=== PATIENT | male | born 1965 | race Caucasian/White ===

== ENCOUNTER → 2016-07-10 | Outpatient (CLI) | payer OTHER ==
[2016-07-10 10:28] LABS: ALT 44 U/L (21-72); AST 27 U/L (17-59); Alkaline Phosphatase 85 U/L (38-126); Anion Gap 15 mmol/L; Blood Urea Nitrogen 12 mg/dL (9-20); Calcium 9.8 mg/dL (8.4-10.2); Carbon Dioxide 26 mmol/L (22-30); Chloride 101 mmol/L (98-107); Cholesterol 143 mg/dL (<200); Glucose 136 mg/dL (74-99); HDL Cholesterol 67 mg/dL (40-60); Non-African American GFR(MDRD) >60 (>60 ml/min/1.73 sqM); Potassium 4.4 mmol/L (3.5-5.1); Sodium 142 mmol/L (137-145); Total Bilirubin 1.1 mg/dL (0.2-1.3); Total Protein 7.5 g/dL (6.3-8.2); Triglycerides 75 mg/dL (<150)
== END | disposition home or self-care (01) ==
LOC: LABWHC1 09:05
PROVIDERS: ATTEND Internal Medicine Endocrinology, Diabetes & Metabolism
DX: E11.65 Type 2 diabetes mellitus with hyperglycemia (principal)
CPT/HCPCS: 36415; 80053; 80061; 82043

== ENCOUNTER 2019-01-07 06:56 | Day surgery (SDC) | payer OTHER ==
[2019-01-02 15:15] VITALS: BMI 28.0
[~2019-01-07 06:56] MED LIST: LACTATED RINGERS 1,000 ML IV SCH
[2019-01-07 07:13] VITALS: RESP 16; TEMP 98.5
[2019-01-07 07:21] LABS: Glucose,Whole Blood 157 mg/dL (75-99)
[2019-01-07] MEDS ORDERED: PROPOFOL 10 MG/ML 20 ML VIAL IV ONE (07:30)
[2019-01-07 08:13] VITALS: BP 124/79; PULSE 66
--- NOTE | 2019-01-07 08:18 | P.PCN ---
Date of Procedure: 01/07/19 Procedure(s) Performed: BRIEF HISTORY: Patient is a 53-year-old pleasant, white male scheduled for an elective colonoscopy as a part of screening for colorectal neoplasia. PROCEDURE PERFORMED: Colonoscopy with snare polypectomy. PREOPERATIVE DIAGNOSIS: Screening for colon cancer. IV sedation per Anesthesia. PROCEDURE: After informed consent was obtained, the patient, was brought into the endoscopy unit. IV sedation was administered by Anesthesia under continuous monitoring. Digital rectal examination was normal. Initially the Olympus CF-160 flexible video colonoscope was then inserted in the rectum, gradually advanced into the cecum without any difficulty. Careful examination was performed as the scope was gradually being withdrawn. Ileocecal valve and the appendiceal orifice were visualized and appeared normal. Prep was excellent. Mucosa of the cecum, ascending colon, transverse colon, descending colon, sigmoid colon, and rectum appeared normal. In the proximal rectum there was a 7-8 mm polyp that was removed by snare polypectomy. Retroflexion was performed in the rectum and no l esions were seen. The patient tolerated the procedure well. IMPRESSION: 7-8 mm proximal rectal polyp status post polypectomy RECOMMENDATIONS: Findings of this examination were discussed with the patient as well as his family. He was advised to follow with the biopsy results and if the biopsy shows an adenoma he can have a repeat colonoscopy in 5 years
== END 2019-01-07 08:37 | disposition home or self-care (01) ==
LOC: ORWHC2ENDO 06:56
PROVIDERS: ATTEND Internal Medicine Gastroenterology
DX: Z12.11 Encounter for screening for malignant neoplasm of colon (principal); K62.1 Rectal polyp; I25.10 Atherosclerotic heart disease of native coronary artery without angina pectoris; I10 Essential (primary) hypertension; E78.5 Hyperlipidemia, unspecified; E11.9 Type 2 diabetes mellitus without complications; Z86.73 Personal history of transient ischemic attack (TIA), and cerebral infarction without residual deficits; Z79.84 Long term (current) use of oral hypoglycemic drugs; Z79.899 Other long term (current) drug therapy; F41.9 Anxiety disorder, unspecified
CPT/HCPCS: 88305; 45385; J2704

== ENCOUNTER 2019-01-11 10:17 | Emergency (ER) | payer OTHER ==
[2019-01-11 10:30] VITALS: RESP 18
--- NOTE | 2019-01-11 10:55 | ED ---
General Adult HPI - General Chief complaint: GI Bleed Stated complaint: Rectal Bleeding/post colonoscopy Time Seen by Provider: 01/11/19 10:25 Source: patient, RN notes reviewed Mode of arrival: ambulatory Limitations: no limitations - History of Present Illness Initial comments: This is a 53-year-old male who presents emergency department with rectal b leeding. Patient states had a colonoscopy with a polypectomy on Saturday and he was told it would be some bleeding. Patient states the bleeding started on fighting and since gotten less but it still continues to bleed so the GI doctor wanted him to be evaluated. Patient denies any abdominal pain patient denies any rectal pain. Patient denies any shortness of breath or difficulty breathing. Patient denies any lightheadedness or dizziness. Patient states he feels completely normal except for the fact that he has blood per rectum. Patient states she's not a lot and infected cyst diminishing. Patient states he is on Plavix but he stopped it 5 days prior to the colonoscopy and he took it again after the colonoscopy but he did not take any today and he is going to hold off for a few more days. - Related Data Home Medications Medication Instructions Recorded Confirmed ALPRAZolam [Xanax] 0.25 mg PO Q8HR PRN 01/26/16 01/11/19 Clopidogrel Bisulfate [Plavix] 75 mg PO DAILY 01/26/16 01/11/19 Krill Oil 500 mg PO DAILY 01/26/16 01/11/19 Loratadine [Claritin] 10 mg PO DAILY 01/26/16 01/11/19 Losartan/Hydrochlorothiazide 1 tab PO DAILY 01/26/16 01/11/19 [Losartan-Hctz 100-12.5 mg Tab] Metoprolol Tartrate 50 mg PO BID 01/26/16 01/11/19 Simvastatin [Zocor] 40 mg PO HS 01/26/16 01/11/19 metFORMIN HCL 500 mg PO BID 01/26/16 01/11/19 Calcium Carbonate [Calcium] 600 mg PO DAILY 01/02/19 01/11/19 Dapagliflozin Propanediol [Farxiga] 5 mg PO DAILY 01/02/19 01/11/19 Allergies Allergy/AdvReac Type Severity Reaction Status Date / Time No Known Allergies Allergy Verified 01/11/19 10:35 Review of Systems ROS Statement: Those systems with pertinent positive or pertinent negative responses have been documented in the HPI. ROS Other: All systems not noted in ROS Statement are negative. Past Medical History Past Medical History: Coronary Artery Disease (CAD), CVA/TIA, Diabetes Mellitus, Hyperlipidemia, Hypertension, Musculoskeletal Disorder Additional Past Medical History / Comment(s): TIA 2010-no residual effects, family hx. colon cancer History of Any Multi-Drug Resistant Organisms: None Reported Past Surgical History: Heart Catheterization With Stent, Hernia Repair, Joint Replacement, Orthopedic Surgery Additional Past Surgical History / Comment(s): TOTAL RT KNEE, left partial knee replacement, LT KNEE SCOPE. SCOPE LT SHOULDER. STENTS X4., repair right elbow fx. Past Anesthesia/Blood Transfusion Reactions: No Reported Reaction Date of Last Stent Placement:: 2017 Past Psychological History: Anxiety Smoking Status: Never smoker Past Alcohol Use History: Daily Past Drug Use History: None Reported - Past Family History Mother Family Medical History: No Reported History Father Family Medical History: Cancer Additional Family Medical History / Comment(s): colon General Exam - General Exam Comments Initial Comments: GENERAL: Patient is well-developed and well-nourished. Patient is nontoxic and well- hydrated and is in no acute distress. ENT: Neck has full range of motion without eliciting any pain. EYES: The sclera were anicteric and conjunctiva were pink and moist. Extraocular movements were intact and pupils were equal round and reactive to light. Eyelids were unremarkable. PULMONARY: Unlabored respirations. Good breath sounds bilaterally. No audible rales rhonchi or wheezing was noted. CARDIOVASCULAR: There is a regular rate and rhythm without any murmurs gallops or rubs. ABDOMEN: Soft and nontender with normal bowel sounds. No palpable organomegaly was noted. There is no palpable pulsatile mass. SKIN: Skin is clear with no lesions or rashes and otherwise unremarkable. NEUROLOGIC: Patient is alert and oriented x3. Cranial nerves II through XII are grossly intact. Motor and sensory are also intact. Normal speech, volume and content. Symmetrical smile. MUSCULOSKELETAL: Normal extremities with adequate strength and full range of motion. LYMPHATICS: No significant lymphadenopathy is noted PSYCHIATRIC: Normal psychiatric evaluation. Limitations: no limitations Course Vital Signs 01/11/19 01/11/19 10:23 12:15 Temperature 97.5 F L 97.9 F Pulse Rate 89 80 Respiratory 18 18 Rate Blood Pressure 139/81 130/88 O2 Sat by Pulse 98 98 Oximetry Medical Decision Making - Medical Decision Making I spoke with Dr. Amado that the patient could follow-up as an outpatient. - Lab Data Result diagrams: 01/11/19 10:54 01/11/19 10:54 Lab Results 01/11/19 01/11/19 01/11/19 Range/Units 10:54 10:54 10:54 WBC 7.1 (3.8-10.6) k/uL RBC 4.39 (4.30-5.90) m/uL Hgb 14.6 (13.0-17.5) gm/dL Hct 41.9 (39.0-53.0) % MCV 95.4 (80.0-100.0) fL MCH 33.2 (25.0-35.0) pg MCHC 34.7 (31.0-37.0) g/dL RDW 14.1 (11.5-15.5) % Plt Count 204 (150-450) k/uL Neutrophils % 62 % Lymphocytes % 28 % Monocytes % 5 % Eosinophils % 2 % Basophils % 1 % Neutrophils # 4.5 (1.3-7.7) k/uL Lymphocytes # 2.0 (1.0-4.8) k/uL Monocytes # 0.4 (0-1.0) k/uL Eosinophils # 0.1 (0-0.7) k/uL Basophils # 0.1 (0-0.2) k/uL PT 10.2 (9.0-12.0) sec INR 0.9 (<1.2) APTT 24.4 (22.0-30.0) sec Sodium 141 (137-145) mmol/L Potassium 4.5 (3.5-5.1) mmol/L Chloride 103 (98-107) mmol/L Carbon Dioxide 24 (22-30) mmol/L Anion Gap 14 mmol/L BUN 19 (9-20) mg/dL Creatinine 0.69 (0.66-1.25) mg/dL Est GFR (CKD-EPI)AfAm >90 (>60 ml/min/1.73 sqM) Est GFR (CKD-EPI)NonAf >90 (>60 ml/min/1.73 sqM) Glucose 277 H (74-99) mg/dL Calcium 10.3 H (8.4-10.2) mg/dL Total Bilirubin 1.0 (0.2-1.3) mg/dL AST 26 (17-59) U/L ALT 38 (21-72) U/L Alkaline Phosphatase 91 (38-126) U/L Total Protein 7.2 (6.3-8.2) g/dL Albumin 4.6 (3.5-5.0) g/dL Disposition Clinical Impression: Rectal bleeding Disposition: HOME SELF-CARE Condition: Good Instructions (If sedation given, give patient instructions): Gastrointestinal Bleeding (ED) Is patient prescribed a controlled substance at d/c from ED?: No Referrals: Julio Santacruz MD [Primary Care Provider] - 1-2 days Time of Disposition: 11:59
[2019-01-11 11:02] LABS: Basophils # (A) 0.1 k/uL (0-0.2); Basophils % (A) 1 %; Eosinophils # (A) 0.1 k/uL (0-0.7); Eosinophils % (A) 2 %; HCT 41.9 % (39.0-53.0); HGB 14.6 gm/dL (13.0-17.5); Lymphocytes % (A) 28 %; MCH 33.2 pg (25.0-35.0); MCHC 34.7 g/dL (31.0-37.0); MCV 95.4 fL (80.0-100.0); Mean Platelet Volume 7.7; Monocytes # (A) 0.4 k/uL (0-1.0); Monocytes % (A) 5 %; Neutrophils # (A) 4.5 k/uL (1.3-7.7); Neutrophils % (A) 62 %; Platelet Count 204 k/uL (150-450); RBC 4.39 m/uL (4.30-5.90); RDW 14.1 % (11.5-15.5); WBC 7.1 k/uL (3.8-10.6)
[2019-01-11 11:12] LABS: ALT 38 U/L (21-72); AST 26 U/L (17-59); African American GFR (CKD) >90 (>60 ml/min/1.73 sqM); Albumin 4.6 g/dL (3.5-5.0); Alkaline Phosphatase 91 U/L (38-126); Anion Gap 14 mmol/L; Blood Urea Nitrogen 19 mg/dL (9-20); Calcium 10.3 mg/dL (8.4-10.2); Carbon Dioxide 24 mmol/L (22-30); Chloride 103 mmol/L (98-107); Glucose 277 mg/dL (74-99); Non-African American GFR(CKD) >90 (>60 ml/min/1.73 sqM); Potassium 4.5 mmol/L (3.5-5.1); Sodium 141 mmol/L (137-145); Total Protein 7.2 g/dL (6.3-8.2)
[2019-01-11 11:18] LABS: INR 0.9 (<1.2); Partial Thromboplastin Time 24.4 sec (22.0-30.0); Prothrombin Time 10.2 sec (9.0-12.0)
[2019-01-11 12:26] VITALS: BP 130/88; PULSE 80; TEMP 97.9
== END 2019-01-11 12:15 | disposition home or self-care (01) ==
LOC: EC 10:17
DX: K62.5 Hemorrhage of anus and rectum (principal); I25.10 Atherosclerotic heart disease of native coronary artery without angina pectoris; E11.9 Type 2 diabetes mellitus without complications; E78.5 Hyperlipidemia, unspecified; I10 Essential (primary) hypertension; Z79.02 Long term (current) use of antithrombotics/antiplatelets; Z79.84 Long term (current) use of oral hypoglycemic drugs; Z79.899 Other long term (current) drug therapy; Z85.038 Personal history of other malignant neoplasm of large intestine; Z86.73 Personal history of transient ischemic attack (TIA), and cerebral infarction without residual deficits; Z95.5 Presence of coronary angioplasty implant and graft; Z98.890 Other specified postprocedural states; Z80.0 Family history of malignant neoplasm of digestive organs
CPT/HCPCS: 36415; 80053; 85025; 85610; 85730; 99283

== ENCOUNTER 2020-06-04 22:53 | Emergency (ER) | payer OTHER ==
[2020-06-04 23:01] VITALS: BP 152/93; PULSE 99; RESP 19; TEMP 97.8
[2020-06-04] MEDS ORDERED: ORPHENADRINE 30 MG/ML 2 ML VIAL IM STA (23:17)
[2020-06-04] MEDS ORDERED: KETOROLAC 15 MG/ML 1 ML VIAL IM STA (23:17)
--- NOTE | 2020-06-04 23:22 | ED ---
General Adult HPI - General Chief complaint: Back Pain/Injury Stated complaint: Back Pain Time Seen by Provider: 06/04/20 23:03 Source: patient, RN notes reviewed Mode of arrival: wheelchair - History of Present Illness Initial comments: 54-year-old male with a past medical history of CAD, TIA, diabetes mellitus, hyperlipidemia, hypertension, chronic back pain presents to the emergency room for chief complaint of low back pain. Patient states she chronically has pain and symptoms it worsens. States he has had this exact same pain in the past. States this started 3 days ago and he saw his doctor. He was given steroids. Patient states that Toradol is what helps his pain and this is what he is here for today. Patient denies blood or bowel changes, numbness or tingling in the saddle region, fevers or chills, or weakness of the lower extremities. States that sitting feels better however when he stands to walk this pain feels worse and he has to bend over to walk. He denies any injuries. States he has been evaluated by Dr. Davis in the past with x-rays and therapy.Patient has no other complaints at this time including shortness of breath, chest pain, abdomi nal pain, nausea or vomiting, headache, or visual changes. - Related Data Home Medications Medication Instructions Recorded Confirmed ALPRAZolam [Xanax] 0.25 mg PO Q8HR PRN 01/26/16 01/11/19 Clopidogrel Bisulfate [Plavix] 75 mg PO DAILY 01/26/16 01/11/19 Krill Oil 500 mg PO DAILY 01/26/16 01/11/19 Loratadine [Claritin] 10 mg PO DAILY 01/26/16 01/11/19 Losartan/Hydrochlorothiazide 1 tab PO DAILY 01/26/16 01/11/19 [Losartan-Hctz 100-12.5 mg Tab] Metoprolol Tartrate 50 mg PO BID 01/26/16 01/11/19 Simvastatin [Zocor] 40 mg PO HS 01/26/16 01/11/19 metFORMIN HCL 500 mg PO BID 01/26/16 01/11/19 Calcium Carbonate [Calcium] 600 mg PO DAILY 01/02/19 01/11/19 Dapagliflozin Propanediol [Farxiga] 5 mg PO DAILY 01/02/19 01/11/19 Allergies Allergy/AdvReac Type Severity Reaction Status Date / Time No Known Allergies Allergy Verified 06/04/20 23:01 Review of Systems ROS Statement: Those systems with pertinent positive or pertinent negative responses have been documented in the HPI. ROS Other: All systems not noted in ROS Statement are negative. Past Medical History Past Medical History: Coronary Artery Disease (CAD), CVA/TIA, Diabetes Mellitus, Hyperlipidemia, Hypertension, Musculoskeletal Disorder Additional Past Medical History / Comment(s): TIA 2010-no residual effects, family hx. colon cancer History of Any Multi-Drug Resistant Organisms: None Reported Past Surgical History: Heart Catheterization With Stent, Hernia Repair, Joint Replacement, Orthopedic Surgery Additional Past Surgical History / Comment(s): TOTAL RT KNEE, left partial knee replacement, LT KNEE SCOPE. SCOPE LT SHOULDER. STENTS X4., repair right elbow fx. Past Anesthesia/Blood Transfusion Reactions: No Reported Reaction Date of Last Stent Placement:: 2017 Past Psychological History: Anxiety Smoking Status: Never smoker Past Alcohol Use History: Daily Past Drug Use History: None Reported - Past Family History Mother Family Medical History: No Reported History Father Family Medical History: Cancer Additional Family Medical History / Comment(s): colon General Exam General appearance: alert Head exam: Present: atraumatic Eye exam: Present: normal appearance ENT exam: Present: normal exam, mucous membranes moist Neck exam: Present: normal inspection, full ROM. Absent: tenderness Respiratory exam: Present: normal lung sounds bilaterally. Absent: respiratory distress Cardiovascular Exam: Present: regular rate, normal rhythm, normal heart sounds GI/Abdominal exam: Present: soft, normal bowel sounds. Absent: distended, tenderness, guarding, rebound, rigid Extremities exam: Present: normal capillary refill (Capillary refill less than 2 seconds in lower extremity bilaterally) Back exam: Absent: CVA tenderness (R), CVA tenderness (L), paraspinal tenderness, vertebral tenderness Neurological exam: Present: alert Course Vital Signs 06/04/20 22:58 Temperature 97.8 F Pulse Rate 99 Respiratory 19 Rate Blood Pressure 152/93 O2 Sat by Pulse 96 Oximetry Medical Decision Making - Medical Decision Making vitals are stable. Patient is well-appearing. Patient has back pain that is consistent with previous episodes. Requesting Toradol shot. Physical exam is unremarkable. Patient is able to ambulate however does have back pain when doing so. Worsening pain with movement. Symptoms consistent with mechanical back pain. Patient was given Toradol and Norflex. He did have some improvement symptoms. I did offer to monitor patient further in the emergency room however he is referring discharge home as it is late. I discussed return parameters. He will follow-up with his doctor. Disposition Clinical Impression: Mechanical back pain Disposition: HOME SELF-CARE Condition: Good Instructions (If sedation given, give patient instructions): Acute Low Back Pain (ED) Additional Instructions: please follow-up with your doctor. If you develop any worsening symptoms such as bladder or bowel changes, numbness or tingling in the groin or buttock, weakness of the lower extremities, or fevers return immediately to the emergency room. Is patient prescribed a controlled substance at d/c from ED?: No Referrals: Julio Santacruz MD [Primary Care Provider] - 1-2 days Time of Disposition: 23:51
== END 2020-06-05 00:06 | disposition home or self-care (01) ==
LOC: EC 22:53
DX: M54.5 Low back pain (principal); I10 Essential (primary) hypertension; E11.9 Type 2 diabetes mellitus without complications; E78.5 Hyperlipidemia, unspecified; F41.9 Anxiety disorder, unspecified; Z79.02 Long term (current) use of antithrombotics/antiplatelets; Z79.899 Other long term (current) drug therapy; Z79.84 Long term (current) use of oral hypoglycemic drugs; Z96.653 Presence of artificial knee joint, bilateral; Z86.73 Personal history of transient ischemic attack (TIA), and cerebral infarction without residual deficits
CPT/HCPCS: 99283; 96372 ×2; J2360; J1885

== ENCOUNTER → 2023-05-06 | Outpatient (CLI) | payer OTHER ==
--- NOTE | 2023-05-06 07:48 | MR ---
EXAMINATION TYPE: MR lumbar spine wo con DATE OF EXAM: 05/06/2023 7:17 AM CLINICAL INDICATION:Male, 57 years old with history of M48.217 spondylosis, LBP, RLE radiculopathy, h x surgery 2 yrs ago. COMPARISON: None TECHNIQUE: Multi planar, multi sequence imaging was performed utilizing: T1-weighted, T2-weighted, a nd turbo inversion recovery imaging of the lumbar spine. IV Contrast: cc . (None if empty) FINDINGS: Alignment: The lumbar vertebral bodies have preserved heights and alignment. Cord: The conus medullaris and the distal spinal cord appear unremarkable with regards to their signa l intensity and morphology. Bones/Discs: Mild degeneration changes throughout the spine with osteophyte formation and facet joint arthropathy. Intervertebral disc signal is maintained. T12-L1: No evidence of significant spinal canal stenosis or neural foraminal stenosis. L1-L2: No evidence of significant spinal canal stenosis or neural foraminal stenosis. L2-L3: No evidence of significant spinal canal stenosis or neural foraminal stenosis. L3-L4: Disc bulge and facet joint arthropathy result in moderate spinal canal and severe right and mo derate left neural foraminal stenosis. L4-L5: Disc bulge and facet joint arthropathy result in mild spinal canal and severe left and mild to moderate right neural foraminal stenosis. L5-S1: The disc is rounded posterior morphology without significant spinal canal stenosis. Facet join t arthropathy with mild bilateral neural foraminal stenosis. No significant spinal canal or neural foraminal stenosis in the remainder of the visualized levels. Other findings: Peripelvic left renal cysts which are high T2 signal. IMPRESSION: Disc degeneration changes facet joint arthropathy with severe right L3-L4 and severe left L4-L5 neura l foraminal stenosis. There is moderate L3-L4 spinal canal stenosis. No evidence for disc herniation.
== END | disposition home or self-care (01) ==
LOC: RADMRIMAIN 06:25
PROVIDERS: ATTEND Physical Medicine & Rehabilitation
DX: M48.061 Spinal stenosis, lumbar region without neurogenic claudication (principal); M51.36 Other intervertebral disc degeneration, lumbar region; M99.73 Connective tissue and disc stenosis of intervertebral foramina of lumbar region; M47.27 Other spondylosis with radiculopathy, lumbosacral region; M41.26 Other idiopathic scoliosis, lumbar region; M51.16 Intervertebral disc disorders with radiculopathy, lumbar region; E11.9 Type 2 diabetes mellitus without complications; Z98.890 Other specified postprocedural states
CPT/HCPCS: 72148

== ENCOUNTER 2024-05-10 03:27 | Emergency (ER) | payer OTHER ==
[2024-05-10 03:35] VITALS: TEMP 98.6
--- NOTE | 2024-05-10 04:22 | ED ---
General Adult HPI - General Chief complaint: ENT Stated complaint: Allergic Rxn Time Seen by Provider: 05/10/24 03:59 Source: patient Mode of arrival: ambulatory Limitations: no limitations - History of Present Illness Initial comments: Patient is a 58-year-old male with past medical history of CAD hypertension presenting today for foreign body sensation. Patient states that he ate chili yesterday at lunch and at 10 PM yesterday evening he had about 8 episodes of nonbloody nonbilious emesis. Afterwards he started to feel like he was stuck in his throat. He is not having any difficulty swallowing or breathing however feels like his uvula is swollen. Denies pain endorses mild nausea. No fevers. Denies chest pain. Denies numbness. Had a cold for the last few days. Is UTD on vaccines - Related Data Home Medications Medication Instructions Recorded Confirmed ALPRAZolam [Xanax] 0.25 mg PO Q8HR PRN 01/26/16 01/11/19 Clopidogrel Bisulfate [Plavix] 75 mg PO DAILY 01/26/16 01/11/19 Krill Oil 500 mg PO DAILY 01/26/16 01/11/19 Loratadine [Claritin] 10 mg PO DAILY 01/26/16 01/11/19 Losartan/Hydrochlorothiazide 1 tab PO DAILY 01/26/16 01/11/19 [Losartan-Hctz 100-12.5 mg Tab] Metoprolol Tartrate 50 mg PO BID 01/26/16 01/11/19 Simvastatin [Zocor] 40 mg PO HS 01/26/16 01/11/19 metFORMIN HCL [Glucophage] 500 mg PO BID 01/26/16 01/11/19 Calcium Carbonate [Calcium] 600 mg PO DAILY 01/02/19 01/11/19 Dapagliflozin Propanediol [Farxiga] 5 mg PO DAILY 01/02/19 01/11/19 Previous Rx's Medication Instructions Recorded Benzonatate [Tessalon Perle] 100 mg PO TID PRN #24 capsule 05/10/24 predniSONE 40 mg PO DAILY 4 Days #16 tab 05/10/24 Allergies Allergy/AdvReac Type Severity Reaction Status Date / Time No Known Allergies Allergy Verified 05/10/24 03:35 Review of Systems ROS Statement: Those systems with pertinent positive or pertinent negative responses have been documented in the HPI. ROS Other: All systems not noted in ROS Statement are negative. Past Medical History Past Medical History: Coronary Artery Disease (CAD), CVA/TIA, Diabetes Mellitus, Hyperlipidemia, Hypertension, Musculoskeletal Disorder Additional Past Medical History / Comment(s): TIA 2010-no residual effects, family hx. colon cancer History of Any Multi-Drug Resistant Organisms: None Reported Past Surgical History: Heart Catheterization With Stent, Hernia Repair, Joint Replacement, Orthopedic Surgery Additional Past Surgical History / Comment(s): TOTAL RT KNEE, left partial knee replacement, LT KNEE SCOPE. SCOPE LT SHOULDER. STENTS X4., repair right elbow fx. Past Anesthesia/Blood Transfusion Reactions: No Reported Reaction Date of Last Stent Placement:: 2017 Past Psychological History: Anxiety Smoking Status: Never smoker Past Alcohol Use History: Daily Past Drug Use History: None Reported - Past Family History Mother Family Medical History: No Reported History Father Family Medical History: Cancer Additional Family Medical History / Comment(s): colon General Exam - General Exam Comments Initial Comments: PE: CONSTITUTIONAL: No apparent distress, well appearing SKIN: Warm, dry, no jaundice, hives or petechiae EYES: Pupils are equally round, extraocular movements intact without nystagmus, clear conjunctiva, non-icteric sclera HENT: Normocephalic, atraumatic, moist mucus membranes, oropharynx clear without exudates, uvular edema, no uvular deviation or tonsillar exudates NECK: , Full range of motion, normal appearance, no crepitus to palpation or cervical adenopathy PULMONARY: Clear to auscultation without wheezes, rhonchi, or rales, normal excursion, no accessory muscle use and no stridor CARDIOVASCULAR: Regular rate, rhythm, normal S1 and S2. No appreciated murmurs, rubs or gallops. extremities well perfused GASTROINTESTINAL: Soft, active bowel sounds throughout, non-tender, non- distended, no palpable masses, no rebound or guarding. No hepatosplenomegaly GENITOURINARY: MUSCULOSKELETAL: Extremities have no gross deformity, no edema, redness, or swelling. NEUROLOGIC:_a/o x 3, GCS 15, normal mentation and speech. Moves all extremities x 4 without motor or sensory deficit PSYCHIATRIC:_normal mood and affect, thought process is clear and linear Limitations: no limitations Course Vital Signs 05/10/24 05/10/24 05/10/24 03:32 04:55 05:58 Temperature 98.6 F Pulse Rate 110 H 105 H 101 H Respiratory 18 16 16 Rate Blood Pressure 155/81 145/87 O2 Sat by Pulse 96 98 95 Oximetry Medical Decision Making - Medical Decision Making Was pt. sent in by a medical professional or institution (NNAMD[facility] Manning, LOAN COLLECTOR, urgent care, hospital, or detention...) When possible be specific @ -No Did you speak to anyone other than the patient for history (EMS, parent, family, police, friend...)? What history was obtained from this source @ -No Did you review nursing and triage notes (agree or disagree)? Why? @ -I reviewed and agree with nursing and triage notes Were old charts reviewed (outside hosp., previous admission, EMS record, old EKG, old radiological studies, urgent care reports/EKG's, detention records)? Report findings @ -Medical records reviewed Differential Diagnosis (chest pain, altered mental status, abdominal pain women, abdominal pain men, vaginal bleeding, weakness, fever, dyspnea, syncope, headache, dizziness, GI bleed, back pain, seizure, CVA, palpatations, mental health, musculoskeletal)? @Differential diagnose phill broad over top considerations include impacted foreign body, uvular inflammation secondary to vomiting, infection, allergic reaction, gastritis EKG interpreted by me (3pts min.). @ -As above X-rays interpreted by me (1pt min.). @ -None done CT interpreted by me (1pt min.). @No foreign body, no free air in soft tissue or abscess U/S interpreted by me (1pt. min.). @ -None done What testing was considered but not performed or refused? (CT, X-rays, U/S, labs)? Why? @ -None What meds were considered but not given or refused? Why? @ -None Did you discuss the management of the patient with other professionals (professionals i.e. NNAMD[facility] Manning, LOAN COLLECTOR, lab, RT, psych nurse, social media specialist, reports analyst, teacher, loan service officer, manager case management)? Give summary @ -No Was smoking cessation discussed for >3mins.? @ -No Was critical care preformed (if so, how long)? @ -No Were there social determinants of health that impacted care today? How? (Homelessness, low income, unemployed, alcoholism, drug addiction, transportation, low edu. Level, literacy, decrease access to med. care, intermediate, rehab)? @ -No Was there de-escalation of care discussed even if they declined (Discuss DNR or withdrawal of care, Hospice)? @ -No What co-morbidities impacted this encounter? (DM, HTN, Smoking, COPD, CAD, Cancer, CVA, ARF, Chemo, Hep., AIDS, mental health diagnosis, sleep apnea, morbid obesity)? @ -None Was patient admitted / discharged? Hospital course, mention meds given and route, prescriptions, significant lab abnormalities, going to OR and other pertinent info. @Discharged- This is a pleasant 58-year-old man history of CAD presenting today for foreign body sensation after 8-9 episodes of emesis this evening. On my assessment he is well-appearing in no acute distress. He is mildly tachycardic otherwise vital signs within acceptable limits. Significant for uvular swelling/edema without deviation. No stridor, pt comfortable, tolerating secretions, no stridor. Will plan and CT soft tissue neck, give Decadron, viscous lidocaine and Pepcid. Patient agreeable plan of care. On reassessment patient endorsed improvement of symptoms. When I reassessed his uvula swelling has improved. He is breathing comfortably, able to tolerate p.o. intake and secretion and has no difficulty in breathing. CT soft tissue neck was negative for acute process. Discussed with patient plan for discharge with steroids. He request Tessalon Perles to prevent coughing and further irritation of his throat. This will be sent to his pharmacy. In my medical judgment there is currently no evidence of an immediate life- threatening or surgical condition. Discharge is therefore indicated at this time. Discharge treatment instructions, follow up instructions, and appropriate emergency department return precautions were discussed with the patient and/or medical decision maker. Patient and/or medical decision maker expressed understanding of and agreed with the treatment plan, follow up instructions, and emergency department return precaution. All patient's and/or medical decision maker's questions were answered. Undiagnosed new problem with uncertain prognosis? @ -No Drug Therapy requiring intensive monitoring for toxicity (Heparin, Nitro, Insulin, Cardizem)? @ -No Were any procedures done? @ -No Diagnosis/symptom? @ Uvular edema Acute, or Chronic, or Acute on Chronic? @ acute Uncomplicated (without systemic symptoms) or Complicated (systemic symptoms)? @ -uncomplicated Side effects of treatment? @ -No Exacerbation, Progression, or Severe Exacerbation? @ -No Poses a threat to life or bodily function? How? (Chest pain, [place], NH, pneumonia, PE, COPD, DKA, ARF, appy, cholecystitis, CVA, Diverticulitis, Homicidal, Suicidal, threat to staff... and all critical care pts) @ -No Disposition Clinical Impression: Uvular edema Disposition: HOME SELF-CARE Condition: Stable Instructions (If sedation given, give patient instructions): Pharyngitis (ED) Additional Instructions: Every disease is a spectrum and a small chance still exists that a serious condition could develop, for this reason, please monitor yourself closely for new, changing or worsening symptoms, symptoms that persist beyond [48 hours], feeling like cannot swallow liquids, your own saliva or any difficulty in breathing, changes in voice, fevers , inability to tolerate/keep down fluids or your medications, inability to follow up with outpatient providers as instructed and should you experience these symptoms or should you have any further concerns for your wellbeing please return to the ED or call 911 immediately. Maintain a cold liquid and soft food diet for today. Avoid sharp or hard foods. If your symptoms have resolved by tomorrow, you may progress your diet as tolerated. PLEASE call your primary care physician as soon as possible to arrange / discuss plan for followup appointment. Appointment in the next 1-3 days is strongly encouraged if possible. PLEASE let us know here before you leave if there is anything further we can do to be of any assistance. Take care and feel Better! Prescriptions: predniSONE 40 mg PO DAILY 4 Days #16 tab Benzonatate [Tessalon Perle] 100 mg PO TID PRN #24 capsule PRN Reason: Cough Is patient prescribed a controlled substance at d/c from ED?: No Referrals: Jannette Phillips MD [Primary Care Provider] - 1-2 days Shakir Ruvalcaba MD [STAFF PHYSICIAN] - 1-2 days
[2024-05-10] MEDS: FAMOTIDINE 20 MG/2 ML VIAL IV STA (04:47)
[2024-05-10] MEDS: LIDOCAINE VISCOUS 2% 15 ML CUP PO ONE (04:49)
[2024-05-10] MEDS: DEXAMETHASONE SOD PHOSPHATE 10 MG/ML 1 ML VIAL IVP STA (04:49)
[2024-05-10 04:56] VITALS: RESP 16
--- NOTE | 2024-05-10 04:56 | CT ---
EXAMINATION TYPE: CT soft tissue neck wo con DATE OF EXAM: 05/10/2024 HISTORY: Pt. c/o difficulty swallowing and spitting after eating chili at 2200. Pt. threw up and is n ot sure if something is lodged in throat. Airway patent. Denies WILEY - states he has been sick with a cold before tonight. COMPARISON: NONE CT DLP: 272.1 mGycm. Automated Exposure Control for Dose Reduction was Utilized. TECHNIQUE: CT scan of the neck is performed without IV contrast. FINDINGS: Lack of IV contrast is noted to limit evaluation of mucosal lesions along with neck adenopa thy Airway: No gross abnormality seen. Parotid/submandibular glands: No gross abnormality seen. Carotid/Vascular Structures: Moderate to severe calcified plaque right greater than left carotid bulb level is seen . Osseous Structures: Mild disc space narrowing C6-C7 level Other: Partially opacified right ethmoid air cells. Dependent fluid in the right maxillary sinus with mucous retention cyst or polyp posteriorly. Moderate inferior opacification left maxillary sinus IMPRESSION: Patent airway. No obvious significant abnormality on noncontrast neck CT. Paranasal sinus disease is noted. [facility], , 05/10/2024 4:53 AM
[2024-05-10 05:59] VITALS: BP 145/87; PULSE 101
--- NOTE | 2024-05-10 15:13 | ED ---
Disposition Clinical Impression: Uvular edema Disposition: HOME SELF-CARE Condition: Stable Instructions (If sedation given, give patient instructions): Pharyngitis (ED) Additional Instructions: Every disease is a spectrum and a small chance still exists that a serious condition could develop, for this reason, please monitor yourself closely for new, changing or worsening symptoms, symptoms that persist beyond [48 hours], feeling like cannot swallow liquids, your own saliva or any difficulty in breathing, changes in voice, fevers , inability to tolerate/keep down fluids or your medications, inability to follow up with outpatient providers as instructed and should you experience these symptoms or should you have any further concerns for your wellbeing please return to the ED or call 911 immediately. Maintain a cold liquid and soft food diet for today. Avoid sharp or hard foods. If your symptoms have resolved by tomorrow, you may progress your diet as tolerated. PLEASE call your primary care physician as soon as possible to arrange / discuss plan for followup appointment. Appointment in the next 1-3 days is strongly encouraged if possible. PLEASE let us know here before you leave if there is anything further we can do to be of any assistance. Take care and feel Better! Prescriptions: predniSONE [Deltasone] 40 mg PO DAILY 4 Days #8 tab predniSONE 40 mg PO DAILY 4 Days #16 tab Benzonatate [Tessalon Perle] 100 mg PO TID PRN #24 capsule PRN Reason: Cough Benzonatate [Tessalon Perles] 100 mg PO TID PRN #31 capsule PRN Reason: Cough Is patient prescribed a controlled substance at d/c from ED?: No Referrals: Jannette Phillips MD [Primary Care Provider] - 1-2 days Shkair Ruvalcaba MD [STAFF PHYSICIAN] - 1-2 days
== END 2024-05-10 06:10 | disposition home or self-care (01) ==
LOC: EC 03:27
DX: K13.79 Other lesions of oral mucosa (principal); Z86.73 Personal history of transient ischemic attack (TIA), and cerebral infarction without residual deficits
CPT/HCPCS: 70490; 99284; 96374; 96375; J1100; J3490